=== PATIENT | female | born 1990 ===

== ENCOUNTER 2018-09-25 17:05 | Emergency (ER) | payer SELFPAY ==
[2018-09-25 18:39] LABS: Basophils # (Auto) 0.1 K/mm3 (0.0-0.1); Basophils % (Auto) 0.7 % (0.0-1.8); Eosinophils # (Auto) 0.1 K/mm3 (0.0-0.4); Eosinophils % (Auto) 0.6 % (0.0-4.3); Hematocrit 45.5 % (30.3-42.9); Hemoglobin 15.6 gm/dl (10.1-14.3); Lymphocytes # (Auto) 0.8 K/mm3 (1.2-5.4); Lymphocytes % (Auto) 9.6 % (13.4-35.0); Mean Corpuscular HGB Conc 34 % (30-34); Mean Corpuscular Volume 91 fl (79-97); Monocytes # (Auto) 0.6 K/mm3 (0.0-0.8); Monocytes % (Auto) 6.9 % (0.0-7.3); Platelet Count 318 K/mm3 (140-440); Red Cell Distribution Width 13.7 % (13.2-15.2)
[2018-09-25 18:59] LABS: Alanine Aminotransferase 15 units/L (7-56); Albumin 4.3 g/dL (3.9-5); BUN/Creatinine Ratio 15; Blood Urea Nitrogen 12 mg/dL (7-17); Calcium 9.5 mg/dL (8.4-10.2); Hemolysis Index 23
[2018-09-25] MEDS ORDERED: TORADOL IV ONE (19:53)
[2018-09-25] MEDS ORDERED: TYLENOL PO ONE (19:53)
[2018-09-25] MEDS ORDERED: NACL 0.9% 1000 ML 1,000 ML IV ONE (19:53)
[2018-09-25] MEDS ORDERED: ZOFRAN IV ONE (19:53)
--- NOTE | 2018-09-25 21:26 | XRay Report ---
PROCEDURE: XR CHEST ROUTINE 2V TECHNIQUE: PA and lateral chest radiographs were obtained. HISTORY: cough COMPARISONS: None. FINDINGS: Heart: Normal. Mediastinum/Vessels: Normal. Lungs/Pleural space: Normal. Bony thorax: No acute osseous abnormality. IMPRESSION: Normal examination. This document is electronically signed by Chong Wilkes MD., Sep 25 2018 09:24:53 PM ET
[2018-09-25 21:44] LABS: Bilirubin,Urine NEG (Negative); Blood,Urine SM (Negative); Color,Urine Yellow (Yellow); Mucus,Urine FEW /HPF; Protein,Urine <15 mg/dL mg/dL (Negative); Urobilinogen,Urine < 2.0 mg/dL (<2.0)
[2018-09-25] MEDS ORDERED: ROCEPHIN/NS 1 GM/50 ML 1 GM/50 ML BAG IV ONE (21:49)
[2018-09-25 23:32] VITALS: BP 137/74
--- NOTE | 2018-09-25 23:51 | Emergency Department Report ---
- General Chief Complaint: Nausea/Vomiting/Diarrhea Stated Complaint: VOMIT/FLU LIKE SYM Time Seen by Provider: 09/25/18 19:45 Source: patient Mode of arrival: Ambulatory Limitations: No Limitations - History of Present Illness Initial Comments: Patient is a 28-year-old white female with no past medical history presents to the ED with complaint of acute onset persistent severe diffuse body aches and pains, nasal and sinus congestion, dry cough and sore throat, nausea and vomiti ng for the last 2 days. Patient states that she's been unable to walk or perform any physical activity because of severe diffuse body aches and pains. Patient also complains of subjective fever and chills for the last 24 hours. Patient denies dizziness, abdominal pain, dysuria, urinary frequency and urgency, shortness of breath, chest pain, diarrhea, neck pain, change in urination, or vaginal bleeding and vaginal discharge. MD Complaint: fever, cough, sore throat, rhinorrhea, nasal congestion, sinus pain, other (Nausea, vomiting, diffuse body aches and pain) -: Sudden, days(s) (2) Severity: severe Severity scale (0 -10): 8 Quality: sharp, aching Consistency: constant Improves With: nothing Worsens With: nothing Context: sick contacts Associated Symptoms: fever, chills, myalgias, headache, rhinorrhea, nasal congestion, sore throat, cough, nausea, vomiting. denies: diaphoresis, stiff neck, chest pain, shortness of breath, abdominal pain, diarrhea, dysuria, rash, confusion, right sweats, weight loss, epistaxis, hoarseness, ear pain, other Treatments Prior to Arrival: Acetaminophen - Related Data Previous Rx's Medication Instructions Recorded Last Taken Type Ibuprofen [Motrin] 600 mg PO Q8H PRN #20 tablet 09/25/18 Unknown Rx Ondansetron [Zofran Odt] 4 mg PO Q6HR PRN #15 tab.rapdis 09/25/18 Unknown Rx Amoxicillin/Potassium Clav 1 each PO Q12H #20 tablet 09/26/18 Unknown Rx [Augmentin 875-125 Tablet] Benzonatate [Tessalon Perles] 100 mg PO Q8HR #24 capsule 09/26/18 Unknown Rx methylPREDNISolone [Medrol] 4 mg PO DAILY #21 tab.ds.pk 09/26/18 Unknown Rx Allergies Allergy/AdvReac Type Severity Reaction Status Date / Time No Known Allergies Allergy Verified 09/25/18 17:09 ED Review of Systems ROS: Stated complaint: VOMIT/FLU LIKE SYM Other details as noted in HPI Comment: All other systems reviewed and negative Constitutional: no symptoms reported, see HPI, chills, fever, malaise, weakness. denies: diaphoresis Eyes: as per HPI. denies: eye pain, eye discharge, vision change ENT: as per HPI, congestion. denies: ear pain, throat pain, dental pain, heari ng loss, epistaxis Respiratory: no symptoms reported, see HPI, cough. denies: shortness of breath, SOB with exertion, SOB at rest Cardiovascular: as per HPI. denies: chest pain, palpitations, dyspnea on exertion, edema, paroxysmal nocturnal dyspnea Endocrine: no symptoms reported, see HPI. denies: intolerance to cold, in creased thirst, increased urine, unexplained weight gain Gastrointestinal: as per HPI, nausea, vomiting. denies: abdominal pain, diarrhea, constipation, hematemesis Genitourinary: as per HPI. denies: urgency, dysuria, frequency, hematuria, abnormal menses, dyspareunia Musculoskeletal: as per HPI, back pain, arthralgia, myalgia Skin: as per HPI. denies: rash, lesions, change in color, change in hair/nails Neurological: as per HPI, headache. denies: weakness, numbness, paresthesias, confusion, abnormal gait, vertigo Psychiatric: as per HPI, anxiety. denies: auditory hallucinations, visual hallucinations, suicidal thoughts Hematological/Lymphatic: as per HPI ED Past Medical Hx - Past Medical History Previous Medical History?: No - Surgical History Past Surgical History?: No - Social History Smoking Status: Never Smoker Substance Use Type: None - Medications Home Medications: Home Medications Medication Instructions Recorded Confirmed Last Taken Type Ibuprofen [Motrin] 600 mg PO Q8H PRN #20 tablet 09/25/18 Unknown Rx Ondansetron [Zofran Odt] 4 mg PO Q6HR PRN #15 tab.rapdis 09/25/18 Unknown Rx Amoxicillin/Potassium Clav 1 each PO Q12H #20 tablet 09/26/18 Unknown Rx [Augmentin 875-125 Tablet] Benzonatate [Tessalon Perles] 100 mg PO Q8HR #24 capsule 09/26/18 Unknown Rx methylPREDNISolone [Medrol] 4 mg PO DAILY #21 tab.ds.pk 09/26/18 Unknown Rx ED Physical Exam - General Limitations: No Limitations General appearance: alert, in no apparent distress - Head Head exam: Present: atraumatic, normocephalic, normal inspection - Eye Eye exam: Present: normal appearance, PERRL, EOMI. Absent: scleral icterus, conjunctival injection, periorbital swelling, periorbital tenderness Pupils: Present: normal accommodation - ENT ENT exam: Present: normal exam, normal orophraynx, mucous membranes moist, TM's normal bilaterally, normal external ear exam, other (Grossly congested nasal passages; palpabe tenderness on frontal sinuses) - Neck Neck exam: Present: normal inspection, full ROM. Absent: tenderness, meningismus, lymphadenopathy - Respiratory Respiratory exam: Present: normal lung sounds bilaterally. Absent: respiratory distress, wheezes, rales, rhonchi, chest wall tenderness, accessory muscle use, decreased breath sounds - Cardiovascular Cardiovascular Exam: Present: regular rate, normal rhythm, normal heart sounds. Absent: bradycardia, tachycardia, systolic murmur, diastolic murmur - GI/Abdominal GI/Abdominal exam: Present: soft, normal bowel sounds. Absent: distended, tenderness, rebound, hyperactive bowel sounds, hypoactive bowel sounds, organomegaly, bruit, pulsatile mass - Rectal Rectal exam: Present: deferred - Extremities Exam Extremities exam: Present: normal inspection, full ROM, normal capillary refill - Back Exam Back exam: Present: normal inspection. Absent: full ROM, tenderness, CVA tenderness (R), CVA tenderness (L), muscle spasm, paraspinal tenderness, vertebral tenderness - Neurological Exam Neurological exam: Present: alert, oriented X3, CN II-XII intact, normal gait, reflexes normal - Psychiatric Psychiatric exam: Present: normal affect - Skin Skin exam: Present: warm, dry, intact, normal color ED Course Vital Signs 09/25/18 09/25/18 17:45 23:08 Temperature 98.2 F 98.1 F Pulse Rate 84 64 Respiratory 20 18 Rate Blood Pressure 131/88 Blood Pressure 137/74 [Left] O2 Sat by Pulse 99 100 Oximetry - Reevaluation(s) Reevaluation #1: 09/25/18 23:53 Patient is alert and oriented 3 and is not in any distress with normal vital signs. Labs are drawn and chest x-ray also ordered. Urinalysis shows acute urinary tract infection. Rapid influenza and rapid strep test and negative. Chest x-ray shows no acute cardiopulmonary abnormalities. Other lab test results are unremarkable. Patient was treated for pain and nausea in the ED, and also given normal saline 1 L IV bolus, and also treated with Rocephin 1 g IV for acute UTI. On reevaluation, patient resting comfortably in the room sleeping and in no distress. Patient's pain is well controlled as well as nause a and vomiting. Patient's symptoms are likely viral, complicated by frontal sinus infection as well as acute urinary tract infection. Patient was discharged home on pain medications, antiemetics and antibiotics, and advised to follow up with her primary care physician at [facility] in 5-7 days for reevaluation. Patient was advised to return to the ED immediately if symptoms get worse. ED Medical Decision Making - Lab Data Result diagrams: 09/25/18 18:13 09/25/18 18:13 - Radiology Data Radiology results: report reviewed, image reviewed Chest x-ray shows normal cardiopulmonary process - Medical Decision Making Patient is alert and oriented 3 and is not in any distress with normal vital signs. Labs are drawn and chest x-ray also ordered. Urinalysis shows acute urinary tract infection. Rapid influenza and rapid strep test and negative. Chest x-ray shows no acute cardiopulmonary abnormalities. Other lab test results are unremarkable. Patient was treated for pain and nausea in the ED, and also given normal saline 1 L IV bolus, and also treated with Rocephin 1 g IV for acute UTI. On reevaluation, patient resting comfortably in the room sleeping and in no distress. Patient's pain is well controlled as well as nausea and vomiting. Patient's symptoms are likely viral, complicated by frontal sinus infection as well as acute urinary tract infection. Patient was discharged home on pain medications, antiemetics and antibiotics, and advised to follow up with her primary care physician at [facility] in 5-7 days for reevaluation. Patient was advised to return to the ED immediately if symptoms get worse. - Differential Diagnosis Flu like, Bronchitis, sinusitis, Acute UTI, Pneumonia, Strep throat Critical care attestation.: If time is entered above; I have spent that time in minutes in the direct care of this critically ill patient, excluding procedure time. ED Disposition Clinical Impression: Flu-like symptoms, Acute urinary tract infection, Nausea and vomiting in adult Acute frontal sinusitis Qualifiers: Recurrence: non-recurrent Qualified Code(s): J01.10 - Acute frontal sinusitis, unspecified Disposition: TO HOME OR SELFCARE Is pt being admited?: No Does the pt Need Aspirin: No Condition: Stable Instructions: Acute Nausea and Vomiting (ED), Sinusitis (ED), Urinary Tract Infection in Women (ED), Upper Respiratory Infection (ED) Additional Instructions: Take medications with food, drink plenty of fluids and follow-up with the primary care physician in 5-7 days for reevaluation. Return to the ED immediately if symptoms get worse. Prescriptions: Amoxicillin/Potassium Clav [Augmentin 875-125 Tablet] 1 each PO Q12H #20 tablet methylPREDNISolone [Medrol] 4 mg PO DAILY #21 tab.ds.pk Ibuprofen [Motrin] 600 mg PO Q8H PRN #20 tablet PRN Reason: Pain Benzonatate [Tessalon Perles] 100 mg PO Q8HR #24 capsule Ondansetron [Zofran Odt] 4 mg PO Q6HR PRN #15 tab.rapdis PRN Reason: Nausea Referrals: GUS ROGERS MD [Primary Care Provider] - 3-5 Days Forms: Work/School Release Form(ED) Time of Disposition: 00:02 Print Language: UPPER SORBIAN
== END 2018-09-26 00:41 | disposition home or self-care (01) ==
LOC: ED 17:05
DX: J01.10 Acute frontal sinusitis, unspecified (principal); N39.0 Urinary tract infection, site not specified; J11.1 Influenza due to unidentified influenza virus with other respiratory manifestations
CPT/HCPCS: 36415; 71046; 80053; 81001; 84703; 85025; 87116; 87400; 87430; 96361; 96365; 96375; 99284; J0696; J1885; J2405; J7030

== ENCOUNTER 2018-10-23 11:02 | Emergency (ER) | payer SELFPAY ==
[2018-10-23 11:13] VITALS: BP 126/79
[2018-10-23 12:37] LABS: Bilirubin,Urine NEG (Negative); Blood,Urine NEG (Negative); Color,Urine Yellow (Yellow); Mucus,Urine FEW /HPF; Protein,Urine <15 mg/dL mg/dL (Negative); Urobilinogen,Urine < 2.0 mg/dL (<2.0)
[2018-10-23 12:39] LABS: HCG Qualitative,Urine Negative (Negative)
--- NOTE | 2018-10-23 14:08 | Emergency Department Report ---
<MONICAZAC - Last Filed: 10/23/18 14:01> ED Abdominal Pain HPI - General Chief Complaint: Abdominal Pain Stated Complaint: ABD PAIN Time Seen by Provider: 10/23/18 12:55 Source: patient Mode of arrival: Ambulatory Limitations: No Limitations - History of Present Illness MD Complaint: abdominal pain Location: RUQ Radiation: LUQ, RUQ, epigastric Migration to: no migration Severity: mild, moderate Quality: aching, dull Consistency: constant Improves With: nothing Worsens With: eating Associated Symptoms: nausea, other (having green stool, green stool). denies: vomiting, diarrhea, fever, dysuria, hematemesis, hematochezia - Related Data Previous Rx's Medication Instructions Recorded Last Taken Type Ibuprofen [Motrin] 600 mg PO Q8H PRN #20 tablet 09/25/18 Unknown Rx Ondansetron [Zofran Odt] 4 mg PO Q6HR PRN #15 tab.rapdis 09/25/18 Unknown Rx Amoxicillin/Potassium Clav 1 each PO Q12H #20 tablet 09/26/18 Unknown Rx [Augmentin 875-125 Tablet] Benzonatate [Tessalon Perles] 100 mg PO Q8HR #24 capsule 09/26/18 Unknown Rx methylPREDNISolone [Medrol] 4 mg PO DAILY #21 tab.ds.pk 09/26/18 Unknown Rx Hyoscyamine Subl [Levsin Sl 0.125 0.125 mg SL Q4HR PRN #20 tablet 10/23/18 Unknown Rx TAB] Allergies Allergy/AdvReac Type Severity Reaction Status Date / Time No Known Allergies Allergy Verified 10/23/18 11:04 ED Review of Systems Constitutional: denies: chills, fever Eyes: denies: eye pain, eye discharge, vision change ENT: denies: ear pain, throat pain Respiratory: denies: cough, shortness of breath, wheezing Cardiovascular: denies: chest pain, palpitations Endocrine: no symptoms reported Gastrointestinal: denies: abdominal pain, nausea, diarrhea, constipation, hematemesis, melena, hematochezia Genitourinary: denies: urgency, dysuria, discharge Musculoskeletal: denies: back pain, joint swelling, arthralgia Skin: denies: rash, lesions Neurological: denies: headache, weakness, paresthesias Psychiatric: denies: anxiety, depression Hematological/Lymphatic: denies: easy bleeding, easy bruising ED Past Medical Hx - Past Medical History Previous Medical History?: No - Surgical History Past Surgical History?: No - Social History Smoking Status: Never Smoker Substance Use Type: None - Medications Home Medications: Home Medications Medication Instructions Recorded Confirmed Last Taken Type Ibuprofen [Motrin] 600 mg PO Q8H PRN #20 tablet 09/25/18 Unknown Rx Ondansetron [Zofran Odt] 4 mg PO Q6HR PRN #15 tab.rapdis 09/25/18 Unknown Rx Amoxicillin/Potassium Clav 1 each PO Q12H #20 tablet 09/26/18 Unknown Rx [Augmentin 875-125 Tablet] Benzonatate [Tessalon Perles] 100 mg PO Q8HR #24 capsule 09/26/18 Unknown Rx methylPREDNISolone [Medrol] 4 mg PO DAILY #21 tab.ds.pk 09/26/18 Unknown Rx Hyoscyamine Subl [Levsin Sl 0.125 0.125 mg SL Q4HR PRN #20 tablet 10/23/18 Unknown Rx TAB] ED Physical Exam - General Limitations: No Limitations General appearance: alert, in no apparent distress - Head Head exam: Present: atraumatic, normocephalic - Eye Eye exam: Present: normal appearance, PERRL, EOMI Pupils: Present: normal accommodation - ENT ENT exam: Present: normal exam, normal orophraynx, mucous membranes moist, TM's normal bilaterally - Neck Neck exam: Present: normal inspection, full ROM - Respiratory Respiratory exam: Present: normal lung sounds bilaterally. Absent: respiratory distress, wheezes, rales, rhonchi, chest wall tenderness, accessory muscle use, decreased breath sounds - Cardiovascular Cardiovascular Exam: Present: regular rate, normal rhythm. Absent: systolic murmur, diastolic murmur, rubs, gallop - GI/Abdominal GI/Abdominal exam: Present: soft, normal bowel sounds - Extremities Exam Extremities exam: Present: normal inspection - Back Exam Back exam: Present: normal inspection - Neurological Exam Neurological exam: Present: alert, oriented X3 - Psychiatric Psychiatric exam: Present: normal affect, normal mood - Skin Skin exam: Present: warm, dry, intact, normal color. Absent: rash ED Disposition Clinical Impression: Acute gastritis Disposition: - TO HOME OR SELFCARE Condition: Stable Instructions: Abdominal Pain (ED) Prescriptions: Hyoscyamine Subl [Levsin Sl 0.125 TAB] 0.125 mg SL Q4HR PRN #20 tablet PRN Reason: Spasms Referrals: [facility] [Provider Group] - 3-5 Days [place] GUS NICOLE MD [Primary Care Provider] - 3-5 Days Forms: Work/School Release Form(ED) <JOHNATHON BUENROSTRO - Last Filed: 11/08/18 09:23> ED Review of Systems ROS: Stated complaint: ABD PAIN Other details as noted in HPI ED Physical Exam - GI/Abdominal GI/Abdominal exam: Present: tenderness. Absent: distended, guarding, rebound ED Course Vital Signs 10/23/18 11:12 Temperature 98.4 F Pulse Rate 60 Respiratory 18 Rate Blood Pressure 126/79 O2 Sat by Pulse 100 Oximetry ED Medical Decision Making - Lab Data Result diagrams: 10/23/18 14:08 10/23/18 14:08 Lab Results 10/23/18 10/23/18 10/23/18 Range/Units 12:12 14:08 14:08 WBC 7.6 (4.5-11.0) K/mm3 RBC 4.56 (3.65-5.03) M/mm3 Hgb 14.1 (10.1-14.3) gm/dl Hct 41.6 (30.3-42.9) % MCV 91 (79-97) fl MCH 31 (28-32) pg MCHC 34 (30-34) % RDW 13.9 (13.2-15.2) % Plt Count 251 (140-440) K/mm3 Lymph % (Auto) 28.4 (13.4-35.0) % [place] % (Auto) 7.0 (0.0-7.3) % Eos % (Auto) 2.4 (0.0-4.3) % Baso % (Auto) 0.6 (0.0-1.8) % Lymph # 2.2 (1.2-5.4) K/mm3 [place] # 0.5 (0.0-0.8) K/mm3 Eos # 0.2 (0.0-0.4) K/mm3 Baso # 0.0 (0.0-0.1) K/mm3 Seg Neutrophils % 61.6 (40.0-70.0) % Seg Neutrophils # 4.7 (1.8-7.7) K/mm3 Sodium (137-145) mmol/L Potassium (3.6-5.0) mmol/L Chloride (98-107) mmol/L Carbon Dioxide (22-30) mmol/L Anion Gap mmol/L BUN (7-17) mg/dL Creatinine (0.7-1.2) mg/dL Estimated GFR ml/min BUN/Creatinine Ratio % Glucose (65-100) mg/dL Calcium (8.4-10.2) mg/dL Total Bilirubin (0.1-1.2) mg/dL Direct Bilirubin (0-0.2) mg/dL AST (5-40) units/L ALT (7-56) units/L Alkaline Phosphatase (35-129) units/L Total Protein (6.3-8.2) g/dL Albumin (3.9-5) g/dL Albumin/Globulin Ratio % Lipase 23 (13-60) units/L Urine Color Yellow (Yellow) Urine Turbidity Slightly-cloudy (Clear) Urine pH 6.0 (5.0-7.0) Ur Specific [place] 1.018 (1.003-1.030) Urine Protein <15 mg/dl (Negative) mg/dL Urine Glucose (UA) Neg (Negative) mg/dL Urine Ketones Neg (Negative) mg/dL Urine Blood Neg (Negative) Urine Nitrite Neg (Negative) Urine Bilirubin Neg (Negative) Urine Urobilinogen < 2.0 (<2.0) mg/dL Ur Leukocyte Esterase Tr (Negative) Urine WBC (Auto) 6.0 (0.0-6.0) /HPF Urine RBC (Auto) 2.0 (0.0-6.0) /HPF U Epithel Cells (Auto) 2.0 (0-13.0) /HPF Urine Mucus Few /HPF Urine HCG, Qual Negative (Negative) 10/23/18 Range/Units 14:08 WBC (4.5-11.0) K/mm3 RBC (3.65-5.03) M/mm3 Hgb (10.1-14.3) gm/dl Hct (30.3-42.9) % MCV (79-97) fl MCH (28-32) pg MCHC (30-34) % RDW (13.2-15.2) % Plt Count (140-440) K/mm3 Lymph % (Auto) (13.4-35.0) % [place] % (Auto) (0.0-7.3) % Eos % (Auto) (0.0-4.3) % Baso % (Auto) (0.0-1.8) % Lymph # (1.2-5.4) K/mm3 [place] # (0.0-0.8) K/mm3 Eos # (0.0-0.4) K/mm3 Baso # (0.0-0.1) K/mm3 Seg Neutrophils % (40.0-70.0) % Seg Neutrophils # (1.8-7.7) K/mm3 Sodium 135 L (137-145) mmol/L Potassium 4.1 (3.6-5.0) mmol/L Chloride 100.2 (98-107) mmol/L Carbon Dioxide 25 (22-30) mmol/L Anion Gap 14 mmol/L BUN 6 L (7-17) mg/dL Creatinine 0.7 (0.7-1.2) mg/dL Estimated GFR > 60 ml/min BUN/Creatinine Ratio 9 % Glucose 85 (65-100) mg/dL Calcium 9.0 (8.4-10.2) mg/dL Total Bilirubin 0.20 (0.1-1.2) mg/dL Direct Bilirubin < 0.2 (0-0.2) mg/dL AST 16 (5-40) units/L ALT 12 (7-56) units/L Alkaline Phosphatase 48 (35-129) units/L Total Protein 7.8 (6.3-8.2) g/dL Albumin 4.0 (3.9-5) g/dL Albumin/Globulin Ratio 1.1 % Lipase (13-60) units/L Urine Color (Yellow) Urine Turbidity (Clear) Urine pH (5.0-7.0) Ur Specific [place] (1.003-1.030) Urine Protein (Negative) mg/dL Urine Glucose (UA) (Negative) mg/dL Urine Ketones (Negative) mg/dL Urine Blood (Negative) Urine Nitrite (Negative) Urine Bilirubin (Negative) Urine Urobilinogen (<2.0) mg/dL Ur Leukocyte Esterase (Negative) Urine WBC (Auto) (0.0-6.0) /HPF Urine RBC (Auto) (0.0-6.0) /HPF U Epithel Cells (Auto) (0-13.0) /HPF Urine Mucus /HPF Urine HCG, Qual (Negative) - Radiology Data [facility] [address] [place] [address] Ultrasound Report Signed Patient: NEMO ELAM MR#: [id number] : 1990 Acct:[id number] Age/Sex: 28 / F ADM Date: 10/23/18 Loc: ED Attending Dr: Ordering Physician: EITAN BASHIR Date of Service: 10/23/18 Procedure(s): US abdomen limited Accession Number(s): [id number] cc: EITAN BASHIR PROCEDURE: US ABDOMEN LIMITED TECHNIQUE: Real-time sonography was performed of the right upper quadrant with image documentation. HISTORY: ruq pain COMPARISONS: None . FINDINGS: Exam of the right upper quadrant shows normal echogenicity of the liver. No masses are seen. The intrahepatic ducts are not distended. There is no ascites. Gallbladder appears normal. Common bile duct normal caliber measuring 2 mm. Right kidney is suboptimally visualized. No gross abnormalities seen. The kidney only measures 8.6 cm. I cannot exclude mild atrophy. Pancreas is well visualized. Portions are obscured by bowel gas. The portion seen and showed no abnormalities. IMPRESSION: No acute or focal abnormalities are seen. Visualization of the pancreas is limited. No gross abnormalities seen. Right kidney only measures 8.6 cm greatest length. This may be imaging artifact. I cannot exclude mild atrophy or a congenitally small kidney. . This document is electronically signed by Ulises Cameron MD., October 23 2018 02:29:01 PM ET Transcribed By: DFN Dictated By: ULISES CAMERON MD Electronically Authenticated By: ULISES CAMERON MD Signed Date/Time: 10/23/18 1431 DD/ 1415 TD/TT: 10/23/18 1416 - Medical Decision Making Patient presenting with epigastric discomfort. Ultrasound was essentially normal and does not show any evidence of cholelithiasis. Patient's pancreas enzymes are within normal limits. Patient referred to GI for further management of acute gastritis versus GERD. Critical care attestation.: If time is entered above; I have spent that time in minutes in the direct care of this critically ill patient, excluding procedure time. ED Disposition Is pt being admited?: No
--- NOTE | 2018-10-23 14:31 | Ultrasound Report ---
PROCEDURE: US ABDOMEN LIMITED TECHNIQUE: Real-time sonography was performed of the right upper quadrant with image documentation. HISTORY: ruq pain COMPARISONS: None . FINDINGS: Exam of the right upper quadrant shows normal echogenicity of the liver. No masses are seen. The intr ahepatic ducts are not distended. There is no ascites. Gallbladder appears normal. Common bile duct n ormal caliber measuring 2 mm. Right kidney is suboptimally visualized. No gross abnormalities seen. T he kidney only measures 8.6 cm. I cannot exclude mild atrophy. Pancreas is well visualized. Portions are obscured by bowel gas. The portion seen and showed no abnormalities. IMPRESSION: No acute or focal abnormalities are seen. Visualization of the pancreas is limited. No gross abnormalities seen. Right kidney only measures 8.6 cm greatest length. This may be imaging artifact. I cannot exclude mil d atrophy or a congenitally small kidney. . This document is electronically signed by Ulises Skinner MD., October 23 2018 02:29:01 PM ET
[2018-10-23 14:43] LABS: Basophils % (Auto) 0.6 % (0.0-1.8); Eosinophils # (Auto) 0.2 K/mm3 (0.0-0.4); Eosinophils % (Auto) 2.4 % (0.0-4.3); Hematocrit 41.6 % (30.3-42.9); Hemoglobin 14.1 gm/dl (10.1-14.3); Lymphocytes # (Auto) 2.2 K/mm3 (1.2-5.4); Lymphocytes % (Auto) 28.4 % (13.4-35.0); Mean Corpuscular HGB Conc 34 % (30-34); Mean Corpuscular Volume 91 fl (79-97); Monocytes # (Auto) 0.5 K/mm3 (0.0-0.8); Platelet Count 251 K/mm3 (140-440); Red Blood Count 4.56 M/mm3 (3.65-5.03); Red Cell Distribution Width 13.9 % (13.2-15.2)
[2018-10-23 14:47] LABS: Alanine Aminotransferase 12 units/L (7-56); BUN/Creatinine Ratio 9; Bilirubin,Direct < 0.2 mg/dL (0-0.2); Blood Urea Nitrogen 6 mg/dL (7-17); Hemolysis Index 5
== END 2018-10-23 16:10 | disposition home or self-care (01) ==
LOC: ED 11:02
DX: R10.13 Epigastric pain (principal); R11.0 Nausea
CPT/HCPCS: 36415; 76705; 80048; 80076; 81001; 81025; 83690; 85025

== ENCOUNTER 2018-11-21 16:23 | Emergency (ER) | payer SELFPAY ==
--- NOTE | 2018-11-21 16:47 | Emergency Department Report ---
Blank Doc - Documentation Documentation: This is a 28-year-old female that presents with lower back pain after heavy li fting at work. Denies any injuries. This initial assessment/diagnostic orders/clinical plan/treatment(s) is/are subject to change based on patient's health status, clinical progression and re-assessment by fellow clinical providers in the ED. Further treatment and workup at subsequent clinical providers discretion. Patient/guardians urged not to elope from the ED as their condition may be serious if not clinically assessed and managed. Initial orders include: 1- Patient sent to [facility] for further evaluation and treatment
[2018-11-21 16:48] VITALS: BP 132/78
== END 2018-11-21 19:32 | disposition home or self-care (01) ==
LOC: ED 16:23
DX: M54.5 Low back pain (principal); Z53.21 Procedure and treatment not carried out due to patient leaving prior to being seen by health care provider
CPT/HCPCS: 99282

== ENCOUNTER 2019-01-30 15:56 | Emergency (ER) | payer SELFPAY ==
--- NOTE | 2019-01-30 16:15 | Emergency Department Report ---
Blank Doc - Documentation Documentation: 28-year-old female that presents with abscess to buttock area. This initial assessment/diagnostic orders/clinical plan/treatment(s) is/are subject to change based on patient's health status, clinical progression and re- assessment by fellow clinical providers in the ED. Further treatment and workup at subsequent clinical providers discretion. Patient/guardians urged not to elope from the ED as their condition may be serious if not clinically assessed and managed. Initial orders include: 1- Patient sent to [facility] for further evaluation and treatment
[2019-01-30 16:16] VITALS: BP 105/74
--- NOTE | 2019-01-30 18:07 | Emergency Department Report ---
- General Chief complaint: Skin/Abscess/Foreign Body Stated complaint: ABSCESS ON TAILBONE Time Seen by Provider: 01/30/19 16:14 Source: patient Mode of arrival: Ambulatory Limitations: No Limitations - History of Present Illness Initial comments: Patient is a 28-year-old female who presents to emergency room with complaints of an abscess to the tailbone that began 5 days ago. she denies any fever, drainage, nausea, vomiting, diarrhea, any other symptoms. 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 she has not seen a general surgeon due to "fears of having surgery." she states she last had an I&D performed from another emergency room approximately 2 years ago. She states that she usually uses warm compresses and it opens up on its own. States that she does not want an I&D performed today and she just "wants antibiotics and a work note." she denies any past medical history, allergies to medications, history of diabetes. - Related Data Previous Rx's Medication Instructions Recorded Last Taken Type Ibuprofen [Motrin] 600 mg PO Q8H PRN #20 tablet 09/25/18 Unknown Rx Ondansetron [Zofran Odt] 4 mg PO Q6HR PRN #15 tab.rapdis 09/25/18 Unknown Rx Amoxicillin/Potassium Clav 1 each PO Q12H #20 tablet 09/26/18 Unknown Rx [Augmentin 875-125 Tablet] Benzonatate [Tessalon Perles] 100 mg PO Q8HR #24 capsule 09/26/18 Unknown Rx methylPREDNISolone [Medrol] 4 mg PO DAILY #21 tab.ds.pk 09/26/18 Unknown Rx Hyoscyamine Subl [Levsin Sl 0.125 0.125 mg SL Q4HR PRN #20 tablet 10/23/18 Unknown Rx TAB] Ketorolac [Toradol] 10 mg PO Q6H PRN #14 tablet 11/21/18 Unknown Rx methOCARBAMOL [Robaxin TAB] 750 mg PO Q8H PRN #20 tablet 11/21/18 Unknown Rx Clindamycin [Clindamycin CAP] 450 mg PO TID 7 Days #63 capsule 01/30/19 Unknown Rx Allergies Allergy/AdvReac Type Severity Reaction Status Date / Time No Known Allergies Allergy Verified 01/30/19 15:58 Abscess Boil HPI - HPI Chief Complaint: Skin/Abscess/Foreign Body Stated Complaint: ABSCESS ON TAILBONE Time Seen by Provider: 01/30/19 16:14 Home Medications: Previous Rx's Medication Instructions Recorded Last Taken Type Ibuprofen [Motrin] 600 mg PO Q8H PRN #20 tablet 09/25/18 Unknown Rx Ondansetron [Zofran Odt] 4 mg PO Q6HR PRN #15 tab.rapdis 09/25/18 Unknown Rx Amoxicillin/Potassium Clav 1 each PO Q12H #20 tablet 09/26/18 Unknown Rx [Augmentin 875-125 Tablet] Benzonatate [Tessalon Perles] 100 mg PO Q8HR #24 capsule 09/26/18 Unknown Rx methylPREDNISolone [Medrol] 4 mg PO DAILY #21 tab.ds.pk 09/26/18 Unknown Rx Hyoscyamine Subl [Levsin Sl 0.125 0.125 mg SL Q4HR PRN #20 tablet 10/23/18 Unknown Rx TAB] Ketorolac [Toradol] 10 mg PO Q6H PRN #14 tablet 11/21/18 Unknown Rx methOCARBAMOL [Robaxin TAB] 750 mg PO Q8H PRN #20 tablet 11/21/18 Unknown Rx Clindamycin [Clindamycin CAP] 450 mg PO TID 7 Days #63 capsule 01/30/19 Unknown Rx Allergies/Adverse Reactions: Allergies Allergy/AdvReac Type Severity Reaction Status Date / Time No Known Allergies Allergy Verified 01/30/19 15:58 ED Review of Systems ROS: Stated complaint: ABSCESS ON TAILBONE Other details as noted in HPI Comment: All other systems reviewed and negative ED Past Medical Hx - Past Medical History Previous Medical History?: No - Surgical History Past Surgical History?: No - Social History Smoking Status: Never Smoker Substance Use Type: None - Medications Home Medications: Home Medications Medication Instructions Recorded Confirmed Last Taken Type Ibuprofen [Motrin] 600 mg PO Q8H PRN #20 tablet 09/25/18 Unknown Rx Ondansetron [Zofran Odt] 4 mg PO Q6HR PRN #15 tab.rapdis 09/25/18 Unknown Rx Amoxicillin/Potassium Clav 1 each PO Q12H #20 tablet 09/26/18 Unknown Rx [Augmentin 875-125 Tablet] Benzonatate [Tessalon Perles] 100 mg PO Q8HR #24 capsule 09/26/18 Unknown Rx methylPREDNISolone [Medrol] 4 mg PO DAILY #21 tab.ds.pk 09/26/18 Unknown Rx Hyoscyamine Subl [Levsin Sl 0.125 0.125 mg SL Q4HR PRN #20 tablet 10/23/18 Unknown Rx TAB] Ketorolac [Toradol] 10 mg PO Q6H PRN #14 tablet 11/21/18 Unknown Rx methOCARBAMOL [Robaxin TAB] 750 mg PO Q8H PRN #20 tablet 11/21/18 Unknown Rx Clindamycin [Clindamycin CAP] 450 mg PO TID 7 Days #63 capsule 01/30/19 Unknown Rx ED Physical Exam - General Limitations: No Limitations General appearance: alert, in no apparent distress - Head Head exam: Present: atraumatic, normocephalic - Eye Eye exam: Present: normal appearance - ENT ENT exam: Present: mucous membranes moist - Neurological Exam Neurological exam: Present: alert, oriented X3 - Psychiatric Psychiatric exam: Present: normal affect, normal mood - Skin Skin exam: Present: warm, dry, other (5 cm area of induration and fluctuance to the tip of the gluteual cleft, small amount of surrounding erythema, communication analyst: NIKA mccain ) ED Course Vital Signs 01/30/19 16:14 Temperature 97.8 F Pulse Rate 97 H Respiratory 18 Rate Blood Pressure 105/74 O2 Sat by Pulse 100 Oximetry ED Medical Decision Making - Medical Decision Making Patient is a 28-year-old female who presents to emergency room with complaints of an abscess to the tailbone that began 5 days ago. she denies any fever, drainage, nausea, vomiting, diarrhea, any other symptoms. 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 she has not seen a general surgeon due to "fears of having surgery." she states she last had an I&D performed from another emergency room approximately 2 years ago. She states that she usually uses warm compresses and it opens up on its own. States that she does not want an I&D performed today and she just "wants antibiotics and a work note." she denies any past medical history, allergies to medications, history of diabetes. VSS. on exam: 5 cm area of induration and fluctuance to the tip of the gluteual cleft, small amount of surrounding erythema. discussed with pt based on her physical examination findings pt needs an I&D for a moderate sized abscess. pt states she wants abx and referral to general surgery. discussed with risks associated with not having an I&D including worsening infection leading to sepsis, , permanent disability. pt verbalized understanding and will sign out AGAINST MEDICAL ADVICE. pt signed AMA form. pt given prescription for clindamycin. advised to follow up with general surgery as soon as possible. continue using warm compresses. may take tylenol or ibuprofen for discomfort. return to the emergency room immediately for any new or worsening symptoms. AMA discharge: As we discussed, you have left the hospital/emergency room AGAINST MEDICAL ADVICE. By leaving, uterus , disability, paralysis, permanent loss of quality of life. The ER is open 24 hours a day, 7 days a week. Please return to the emergency room right away if and when you change her mind. If you decide not to return to the emergency room, please follow up with the listed physician referrals as soon as possible. - Differential Diagnosis abscess, cellulitis, pilonidal cyst Critical care attestation.: If time is entered above; I have spent that time in minutes in the direct care of this critically ill patient, excluding procedure time. ED Disposition Clinical Impression: Pilonidal cyst with abscess Disposition: LEFT AGAINST MED ADVICE Is pt being admited?: No Does the pt Need Aspirin: No Condition: Stable Instructions: Abscess (ED) Additional Instructions: risks associated with not having an I&D including worsening infection leading to sepsis, , permanent disability. you have signed out today against medical advise. please take medication as prescribed. Follow up with general surgery as soon as possible. continue using warm compresses. may take tylenol or ibuprofen for discomfort. return to the emergency room immediately for any new or worsening symptoms. Prescriptions: Clindamycin [Clindamycin CAP] 450 mg PO TID 7 Days #63 capsule Referrals: LOGAN JOSEPH MD [Staff Physician] - JUNAID BERRY MD [Staff Physician] - TROY Forms: AMA Form, Work/School Release Form(ED) Time of Disposition: 18:50 Print Language: WELSH
== END 2019-01-30 19:01 | disposition left against medical advice (07) ==
LOC: ED 15:56
DX: L05.01 Pilonidal cyst with abscess (principal)

== ENCOUNTER 2019-05-19 12:10 | Emergency (ER) | payer SELFPAY ==
--- NOTE | 2019-05-19 12:21 | Event Note ---
ED Screening Note Date of service: 05/19/19 Time: 12:20 ED Screening Note: Pt complains of hair loss and weight loss x 1.5 weeks denies hx of thyroid disease also complains of abscess on back This initial assessment/diagnostic orders/clinical plan/treatment(s) is/are subject to change based on patients health status, clinical progression and re- assessment by fellow clinical providers in the ED. Further treatment and workup at subsequent clinical providers discretion. Patient/guardian urged not to elope from the ED as their condition may be serious if not clinically assessed and managed. Initial orders include: labs
[2019-05-19 13:20] LABS: Basophils % (Auto) 0.4 % (0.0-1.8); Eosinophils # (Auto) 0.1 K/mm3 (0.0-0.4); Eosinophils % (Auto) 1.1 % (0.0-4.3); Hematocrit 46.8 % (30.3-42.9); Hemoglobin 15.6 gm/dl (10.1-14.3); Lymphocytes % (Auto) 9.2 % (13.4-35.0); Mean Corpuscular HGB Conc 33 % (30-34); Mean Corpuscular Volume 92 fl (79-97); Monocytes # (Auto) 0.4 K/mm3 (0.0-0.8); Monocytes % (Auto) 4.1 % (0.0-7.3); Platelet Count 285 K/mm3 (140-440); Red Cell Distribution Width 13.1 % (13.2-15.2)
[2019-05-19 14:06] LABS: Alanine Aminotransferase 30 units/L (7-56); Albumin 4.7 g/dL (3.9-5); BUN/Creatinine Ratio 9; Blood Urea Nitrogen 6 mg/dL (7-17); Calcium 9.7 mg/dL (8.4-10.2); Hemolysis Index 15
--- NOTE | 2019-05-19 17:29 | Emergency Department Report ---
- General Chief complaint: Skin/Abscess/Foreign Body Stated complaint: POSS ABCESS BACK Time Seen by Provider: 05/19/19 16:35 Source: patient Mode of arrival: Ambulatory Limitations: No Limitations - History of Present Illness Initial comments: Patient is a 29-year-old female presents emergency room with complaints of noticing a small amount of hair falling out and losing eyebrow hair and eyelashes that began 2 weeks ago. Patient states that she was concerned she was having thyroid issues but has no history of thyroid issues. She states that she also has an abscess of the tailbone that began a week ago. She states that she has chronically had this abscess present since she was 13 years old. She denies any fever, drainage, chills, any other symptoms. She states that she last had this approximately 4 months ago and it opened and drained on its own. She states that she has not had an I&D in several years due to it happening so frequently she no longer allows anyone to perform an I&D. She denies any other past medical history or allergies medications. she states that she did not follow-up with a general surgeon she was referred to last time. - Related Data Previous Rx's Medication Instructions Recorded Last Taken Type Ibuprofen [Motrin] 600 mg PO Q8H PRN #20 tablet 09/25/18 Unknown Rx Ondansetron [Zofran Odt] 4 mg PO Q6HR PRN #15 tab.rapdis 09/25/18 Unknown Rx Amoxicillin/Potassium Clav 1 each PO Q12H #20 tablet 09/26/18 Unknown Rx [Augmentin 875-125 Tablet] Benzonatate [Tessalon Perles] 100 mg PO Q8HR #24 capsule 09/26/18 Unknown Rx methylPREDNISolone [Medrol] 4 mg PO DAILY #21 tab.ds.pk 09/26/18 Unknown Rx Hyoscyamine Subl [Levsin Sl 0.125 0.125 mg SL Q4HR PRN #20 tablet 10/23/18 Un known Rx TAB] Ketorolac [Toradol] 10 mg PO Q6H PRN #14 tablet 11/21/18 Unknown Rx methOCARBAMOL [Robaxin TAB] 750 mg PO Q8H PRN #20 tablet 11/21/18 Unknown Rx Clindamycin [Clindamycin CAP] 450 mg PO TID 7 Days #63 capsule 01/30/19 Unknown Rx Doxycycline Hyclate [Doxycycline 100 mg PO BID 7 Days #14 tablet 05/19/19 Unknown Rx Hyclate TAB] Allergies Allergy/AdvReac Type Severity Reaction Status Date / Time No Known Allergies Allergy Verified 01/30/19 15:58 Abscess Boil HPI - HPI Chief Complaint: Skin/Abscess/Foreign Body Stated Complaint: POSS ABCESS BACK Time Seen by Provider: 05/19/19 16:35 Home Medications: Previous Rx's Medication Instructions Recorded Last Taken Type Ibuprofen [Motrin] 600 mg PO Q8H PRN #20 tablet 09/25/18 Unknown Rx Ondansetron [Zofran Odt] 4 mg PO Q6HR PRN #15 tab.rapdis 09/25/18 Unknown Rx Amoxicillin/Potassium Clav 1 each PO Q12H #20 tablet 09/26/18 Unknown Rx [Augmentin 875-125 Tablet] Benzonatate [Tessalon Perles] 100 mg PO Q8HR #24 capsule 09/26/18 Unknown Rx methylPREDNISolone [Medrol] 4 mg PO DAILY #21 tab.ds.pk 09/26/18 Unknown Rx Hyoscyamine Subl [Levsin Sl 0.125 0.125 mg SL Q4HR PRN #20 tablet 10/23/18 Unknown Rx TAB] Ketorolac [Toradol] 10 mg PO Q6H PRN #14 tablet 11/21/18 Unknown Rx methOCARBAMOL [Robaxin TAB] 750 mg PO Q8H PRN #20 tablet 11/21/18 Unknown Rx Clindamycin [Clindamycin CAP] 450 mg PO TID 7 Days #63 capsule 01/30/19 Unknown Rx Doxycycline Hyclate [Doxycycline 100 mg PO BID 7 Days #14 tablet 05/19/19 Unknown Rx Hyclate TAB] Allergies/Adverse Reactions: Allergies Allergy/AdvReac Type Severity Reaction Status Date / Time No Known Allergies Allergy Verified 01/30/19 15:58 ED Review of Systems ROS: Stated complaint: POSS ABCESS BACK Other details as noted in HPI Comment: All other systems reviewed and negative ED Past Medical Hx - Past Medical History Previous Medical History?: Yes Additional medical history: Pilonidal abscess - Surgical History Past Surgical History?: No - Social History Smoking Status: Never Smoker Substance Use Type: None - Medications Home Medications: Home Medications Medication Instructions Recorded Confirmed Last Taken Type Ibuprofen [Motrin] 600 mg PO Q8H PRN #20 tablet 09/25/18 Unknown Rx Ondansetron [Zofran Odt] 4 mg PO Q6HR PRN #15 tab.rapdis 09/25/18 Unknown Rx Amoxicillin/Potassium Clav 1 each PO Q12H #20 tablet 09/26/18 Unknown Rx [Augmentin 875-125 Tablet] Benzonatate [Tessalon Perles] 100 mg PO Q8HR #24 capsule 09/26/18 Unknown Rx methylPREDNISolone [Medrol] 4 mg PO DAILY #21 tab.ds.pk 09/26/18 Unknown Rx Hyoscyamine Subl [Levsin Sl 0.125 0.125 mg SL Q4HR PRN #20 tablet 10/23/18 Unknown Rx TAB] Ketorolac [Toradol] 10 mg PO Q6H PRN #14 tablet 11/21/18 Unknown Rx methOCARBAMOL [Robaxin TAB] 750 mg PO Q8H PRN #20 tablet 11/21/18 Unknown Rx Clindamycin [Clindamycin CAP] 450 mg PO TID 7 Days #63 capsule 01/30/19 Unknown Rx Doxycycline Hyclate [Doxycycline 100 mg PO BID 7 Days #14 tablet 05/19/19 Unknown Rx Hyclate TAB] ED Physical Exam - General Limitations: No Limitations General appearance: alert, in no apparent distress - Head Head exam: Present: atraumatic, normocephalic, other (pt has head full of hair, no obvious visualized bald areas ) - Eye Eye exam: Present: normal appearance - ENT ENT exam: Present: mucous membranes moist, other (pt has full eyebrow hair, pt has eyelashes present) - Neurological Exam Neurological exam: Present: alert, oriented X3 - Psychiatric Psychiatric exam: Present: normal affect, normal mood - Skin Skin exam: Present: warm, dry, other (2 cm area of induration and erythema to just superior to the gluteal cleft, no fluctuance, no opening, no necrosis, infant caregiver: NIKA cortez) ED Course Vital Signs 05/19/19 05/19/19 12:19 18:13 Temperature 98.4 F Pulse Rate 72 87 Respiratory 18 16 Rate Blood Pressure 121/77 Blood Pressure 131/90 [Right] O2 Sat by Pulse 100 100 Oximetry ED Medical Decision Making - Lab Data Result diagrams: 05/19/19 12:45 05/19/19 12:45 Lab Results 05/19/19 05/19/19 05/19/19 Range/Units 12:45 12:45 12:45 WBC 10.6 (4.5-11.0) K/mm3 RBC 5.10 H (3.65-5.03) M/mm3 Hgb 15.6 H (10.1-14.3) gm/dl Hct 46.8 H (30.3-42.9) % MCV 92 (79-97) fl MCH 31 (28-32) pg MCHC 33 (30-34) % RDW 13.1 L (13.2-15.2) % Plt Count 285 (140-440) K/mm3 Lymph % (Auto) 9.2 L (13.4-35.0) % [place] % (Auto) 4.1 (0.0-7.3) % Eos % (Auto) 1.1 (0.0-4.3) % Baso % (Auto) 0.4 (0.0-1.8) % Lymph # 1.0 L (1.2-5.4) K/mm3 [place] # 0.4 (0.0-0.8) K/mm3 Eos # 0.1 (0.0-0.4) K/mm3 Baso # 0.0 (0.0-0.1) K/mm3 Seg Neutrophils % 85.2 H (40.0-70.0) % Seg Neutrophils # 9.1 H (1.8-7.7) K/mm3 Sodium 138 (137-145) mmol/L Potassium 4.1 (3.6-5.0) mmol/L Chloride 102.1 (98-107) mmol/L Carbon Dioxide 22 (22-30) mmol/L Anion Gap 18 mmol/L BUN 6 L (7-17) mg/dL Creatinine 0.7 (0.7-1.2) mg/dL Estimated GFR > 60 ml/min BUN/Creatinine Ratio 9 % Glucose 98 (65-100) mg/dL Calcium 9.7 (8.4-10.2) mg/dL Total Bilirubin 0.50 (0.1-1.2) mg/dL AST 26 (5-40) units/L ALT 30 (7-56) units/L Alkaline Phosphatase 58 (35-129) units/L Total Protein 8.6 H (6.3-8.2) g/dL Albumin 4.7 (3.9-5) g/dL Albumin/Globulin Ratio 1.2 % TSH 1.070 (0.270-4.200) mlU/mL HCG, Quant (0-4) mIU/mL 05/19/19 Range/Units 12:45 WBC (4.5-11.0) K/mm3 RBC (3.65-5.03) M/mm3 Hgb (10.1-14.3) gm/dl Hct (30.3-42.9) % MCV (79-97) fl MCH (28-32) pg MCHC (30-34) % RDW (13.2-15.2) % Plt Count (140-440) K/mm3 Lymph % (Auto) (13.4-35.0) % [place] % (Auto) (0.0-7.3) % Eos % (Auto) (0.0-4.3) % Baso % (Auto) (0.0-1.8) % Lymph # (1.2-5.4) K/mm3 [place] # (0.0-0.8) K/mm3 Eos # (0.0-0.4) K/mm3 Baso # (0.0-0.1) K/mm3 Seg Neutrophils % (40.0-70.0) % Seg Neutrophils # (1.8-7.7) K/mm3 Sodium (137-145) mmol/L Potassium (3.6-5.0) mmol/L Chloride (98-107) mmol/L Carbon Dioxide (22-30) mmol/L Anion Gap mmol/L BUN (7-17) mg/dL Creatinine (0.7-1.2) mg/dL Estimated GFR ml/min BUN/Creatinine Ratio % Glucose (65-100) mg/dL Calcium (8.4-10.2) mg/dL Total Bilirubin (0.1-1.2) mg/dL AST (5-40) units/L ALT (7-56) units/L Alkaline Phosphatase (35-129) units/L Total Protein (6.3-8.2) g/dL Albumin (3.9-5) g/dL Albumin/Globulin Ratio % TSH (0.270-4.200) mlU/mL HCG, Quant < 2 (0-4) mIU/mL - Medical Decision Making Patient is a 29-year-old female presents emergency room with complaints of noticing a small amount of hair falling out and losing eyebrow hair and eyelashes that began 2 weeks ago. Patient states that she was concerned she was having thyroid issues but has no history of thyroid issues. She states that she also has an abscess of the tailbone that began a week ago. She states that she has chronically had this abscess present since she was 13 years old. She denies any fever, drainage, chills, any other symptoms. She states that she last had this approximately 4 months ago and it opened and drained on its own. She states that she has not had an I&D in several years due to it happening so frequently she no longer allows anyone to perform an I&D. She denies any other past medical history or allergies medications. she states that she did not follow-up with a general surgeon she was referred to last time. vitals are normal. labs are stable. TSH is normal. hcg quant is negative. on exam: 2 cm area of induration and erythema to just superior to the gluteal cleft, no fluctuance, no opening, no necrosis, infant caregiver: NIKA cortez. appears to be cellulitis at this point no fluctuant abscess no need for I&D at this time. Given prescription for doxycycline. advised pt please take medication as prescribed. May take Tylenol or ibuprofen for any discomfort. Please use warm compresses 3 times a day. Follow up with a primary care doctor in the next 2-3 days for further evaluation and management. Please follow-up with a general surgeon regarding your chronic condition. Return to the emergency room for any new or worsening symptoms. Critical care attestation.: If time is entered above; I have spent that time in minutes in the direct care of this critically ill patient, excluding procedure time. ED Disposition Clinical Impression: Hair loss Cellulitis Qualifiers: Site of cellulitis: buttock Qualified Code(s): L03.317 - Cellulitis of buttock Disposition: - TO HOME OR SELFCARE Is pt being admited?: No Does the pt Need Aspirin: No Condition: Stable Instructions: Cellulitis (ED) Additional Instructions: please take medication as prescribed. May take Tylenol or ibuprofen for any discomfort. Please use warm compresses 3 times a day. Follow up with a primary care doctor in the next 2-3 days for further evaluation and management. Please follow-up with a general surgeon regarding your chronic condition. Return to the emergency room for any new or worsening symptoms. Prescriptions: Doxycycline Hyclate [Doxycycline Hyclate TAB] 100 mg PO BID 7 Days #14 tablet Referrals: JOSE MOSER MD [Staff Physician] - 2-3 Days [facility] [Outside] - 2-3 Days [facility] [Outside] - 2-3 Days URBANO CASTILLO DO [Staff Physician] - 2-3 Days Forms: Work/School Release Form(ED) Time of Disposition: 17:31 Print Language: AMHARIC
[2019-05-19 18:14] VITALS: BP 131/90
== END 2019-05-19 18:13 | disposition home or self-care (01) ==
LOC: ED 12:10
DX: L03.312 Cellulitis of back [any part except buttock and flank] (principal); L65.9 Nonscarring hair loss, unspecified; Z79.899 Other long term (current) drug therapy
CPT/HCPCS: 36415; 80053; 84443; 84702; 85025

== ENCOUNTER 2019-07-27 19:30 | Emergency (ER) | payer SELFPAY ==
[2019-07-27 20:15] VITALS: BP 134/72
--- NOTE | 2019-07-27 20:35 | Emergency Department Report ---
Blank Doc - Documentation Documentation: has a pilonidal cyst and needs a work note with recommended treatment.
--- NOTE | 2019-07-27 22:02 | Emergency Department Report ---
ED General Adult HPI - General Chief complaint: Wound/Laceration Stated complaint: CYST Time Seen by Provider: 07/27/19 20:33 Source: patient Mode of arrival: Ambulatory Limitations: No Limitations - History of Present Illness Initial comments: Patient is a 29-year-old -Welsh female with a history of chronic recurrent pilonidal abscess who presents to the ED with acute exacerbation of painful swollen erythematous maculopapular nonfluctuant rash on pilonidal area for the last 3 days. Patient states that the last time she had similar symptom or on the same spot was 2 months ago and that it drained on itself and was taking antibiotics. Patient denies fever, chills, nausea, vomiting, traumatic injury, headache, chest pain or shortness of breath, numbness and tingling or weakness of lower extremities bilaterally, urinary or bowel incontinence or saddle paresthesia. MD Complaint: Abscess of Pilonidal area -: Sudden, days(s) (3) Location: buttocks Radiation: non-radiation Severity scale (0 -10): 5 Quality: aching, sharp Consistency: constant Improves with: none Worsens with: none Associated Symptoms: denies other symptoms, rash (Erythematous maculopapular painful swollen rash on the tailbone area). denies: confusion, chest pain, cough, diaphoresis, fever/chills, headaches, loss of appetite, malaise, nausea/vomiting, seizure, shortness of breath, syncope Treatments Prior to Arrival: none - Related Data Previous Rx's Medication Instructions Recorded Last Taken Type Ondansetron [Zofran Odt] 4 mg PO Q6HR PRN #15 tab.rapdis 09/25/18 Unknown Rx Amoxicillin/Potassium Clav 1 each PO Q12H #20 tablet 09/26/18 Unknown Rx [Augmentin 875-125 Tablet] Benzonatate [Tessalon Perles] 100 mg PO Q8HR #24 capsule 09/26/18 Unknown Rx methylPREDNISolone [Medrol] 4 mg PO DAILY #21 tab.ds.pk 09/26/18 Unknown Rx Hyoscyamine Subl [Levsin Sl 0.125 0.125 mg SL Q4HR PRN #20 tablet 10/23/18 Unknown Rx TAB] Ketorolac [Toradol] 10 mg PO Q6H PRN #14 tablet 11/21/18 Unknown Rx methOCARBAMOL [Robaxin TAB] 750 mg PO Q8H PRN #20 tablet 11/21/18 Unknown Rx Doxycycline Hyclate [Doxycycline 100 mg PO BID 7 Days #14 tablet 05/19/19 Unknown Rx Hyclate TAB] Clindamycin [Clindamycin CAP] 300 mg PO Q6H 10 Days #80 capsule 07/27/19 Unknown Rx Ibuprofen [Motrin 600 MG tab] 600 mg PO Q8H PRN #30 tablet 07/27/19 Unknown Rx Sulfamethoxazole/Trimethoprim 1 each PO Q12H #20 tablet 07/27/19 Unknown Rx [Bactrim DS TAB] Allergies Allergy/AdvReac Type Severity Reaction Status Date / Time No Known Allergies Allergy Verified 01/30/19 15:58 ED Review of Systems ROS: Stated complaint: CYST Other details as noted in HPI Constitutional: denies: chills, fever Eyes: denies: eye pain, eye discharge, vision change ENT: denies: ear pain, throat pain Respiratory: denies: cough, shortness of breath, wheezing Cardiovascular: denies: chest pain, palpitations Endocrine: no symptoms reported Gastrointestinal: denies: abdominal pain, nausea, diarrhea Genitourinary: denies: urgency, dysuria, discharge Musculoskeletal: denies: back pain, joint swelling, arthralgia Skin: rash (Erythematous swollen maculopapular painful rash on pilonidal area), other (Swollen erythematous maculopapular rash on pilonidal area). denies: lesions Neurological: denies: headache, weakness, paresthesias Psychiatric: denies: anxiety, depression Hematological/Lymphatic: denies: easy bleeding, easy bruising ED Past Medical Hx - Past Medical History Previous Medical History?: Yes Additional medical history: Pilonidal abscess since age 13 - Surgical History Past Surgical History?: No - Social History Smoking Status: Never Smoker - Medications Home Medications: Home Medications Medication Instructions Recorded Confirmed Last Taken Type Ondansetron [Zofran Odt] 4 mg PO Q6HR PRN #15 tab.rapdis 09/25/18 Unknown Rx Amoxicillin/Potassium Clav 1 each PO Q12H #20 tablet 09/26/18 Unknown Rx [Augmentin 875-125 Tablet] Benzonatate [Tessalon Perles] 100 mg PO Q8HR #24 capsule 09/26/18 Unknown Rx methylPREDNISolone [Medrol] 4 mg PO DAILY #21 tab.ds.pk 09/26/18 Unknown Rx Hyoscyamine Subl [Levsin Sl 0.125 0.125 mg SL Q4HR PRN #20 tablet 10/23/18 Unknown Rx TAB] Ketorolac [Toradol] 10 mg PO Q6H PRN #14 tablet 11/21/18 Unknown Rx methOCARBAMOL [Robaxin TAB] 750 mg PO Q8H PRN #20 tablet 11/21/18 Unknown Rx Doxycycline Hyclate [Doxycycline 100 mg PO BID 7 Days #14 tablet 05/19/19 Unknown Rx Hyclate TAB] Clindamycin [Clindamycin CAP] 300 mg PO Q6H 10 Days #80 capsule 07/27/19 Unknown Rx Ibuprofen [Motrin 600 MG tab] 600 mg PO Q8H PRN #30 tablet 07/27/19 Unknown Rx Sulfamethoxazole/Trimethoprim 1 each PO Q12H #20 tablet 07/27/19 Unknown Rx [Bactrim DS TAB] ED Physical Exam - General Limitations: No Limitations General appearance: alert, in no apparent distress - Head Head exam: Present: atraumatic, normocephalic, normal inspection - Eye Eye exam: Present: normal appearance, PERRL, EOMI - ENT ENT exam: Present: normal exam, normal orophraynx, mucous membranes moist, TM's normal bilaterally, normal external ear exam - Neck Neck exam: Present: normal inspection, full ROM - Respiratory Respiratory exam: Present: normal lung sounds bilaterally. Absent: respiratory distress, wheezes, rales, stridor, chest wall tenderness, accessory muscle use, decreased breath sounds - Cardiovascular Cardiovascular Exam: Present: regular rate, normal rhythm, normal heart sounds. Absent: systolic murmur, diastolic murmur, rubs, gallop - GI/Abdominal GI/Abdominal exam: Present: soft, normal bowel sounds. Absent: tenderness, guarding, rebound, hyperactive bowel sounds, hypoactive bowel sounds - Extremities Exam Extremities exam: Present: normal inspection, full ROM, normal capillary refill. Absent: joint swelling, calf tenderness - Back Exam Back exam: Present: normal inspection, full ROM. Absent: tenderness, muscle spasm, paraspinal tenderness - Neurological Exam Neurological exam: Present: alert, oriented X3, CN II-XII intact, normal gait, reflexes normal - Psychiatric Psychiatric exam: Present: normal affect, normal mood - Skin Skin exam: Present: warm, dry, intact, normal color, rash (Erythematous maculopapular fluctuant rash on pilonidal area), erythema, other (Swelling, severely tender erythematous fluctuant maculopapular rash on pilonidal area) ED Course Vital Signs 07/27/19 07/27/19 20:07 20:20 Temperature 98.2 F 98.2 F Pulse Rate 63 72 Respiratory 18 18 Rate Blood Pressure 134/72 134/72 O2 Sat by Pulse 100 100 Oximetry ED Medical Decision Making - Medical Decision Making This is a 29-year-old -Welsh female with a history of chronic recurrent pilonidal cyst abscesses who presented to the ED with acute exacerba tion of painful swollen erythematous maculopapular fluctuant pilonidal rash for the last 3 days worse in the last 12 hours. In the ED, patient is alert and oriented x3 and is not in distress with normal vital signs. I offered to have him I&D procedure performed in the ED since the rash was fluctuant, severely tender and swollen but the patient declined any procedures, stating that she prefers that the abscess drains on its own. Patient was therefore discharged home on antibiotics and pain medications and advised to follow-up with her own primary care physician or consider following up with a general surgeon on-call Dr. Castillo of possible I&D procedure. Patient was advised to return to the ED immediately if symptoms get worse. - Differential Diagnosis Pilonidal abscess; Cellulitis; Folliculitis Critical care attestation.: If time is entered above; I have spent that time in minutes in the direct care of this critically ill patient, excluding procedure time. ED Disposition Clinical Impression: Pilonidal cyst with abscess, Cellulitis and abscess of buttock Disposition: DC-01 TO HOME OR SELFCARE Is pt being admited?: No Does the pt Need Aspirin: No Condition: Stable Instructions: Cellulitis (ED), Abscess (ED) Additional Instructions: Take medications with food, drink plenty of fluids and follow up with Primary Care Physician in 7-10 days. Consider follow up with the General Surgeon, Dr. Castillo, in 2-3 days for reevaluation for a possible I&D procedure. Return to the ED immediately if symptoms get worse. Prescriptions: Sulfamethoxazole/Trimethoprim [Bactrim DS TAB] 1 each PO Q12H #20 tablet Clindamycin [Clindamycin CAP] 300 mg PO Q6H 10 Days #80 capsule Ibuprofen [Motrin 600 MG tab] 600 mg PO Q8H PRN #30 tablet PRN Reason: Pain Referrals: URBANO CASTILLO DO [Staff Physician] - 3-5 Days Forms: Work/School Release Form(ED) Time of Disposition: 21:57 Print Language: URDU
== END 2019-07-27 22:15 | disposition home or self-care (01) ==
LOC: ED 19:30
DX: L05.01 Pilonidal cyst with abscess (principal); L03.317 Cellulitis of buttock; Z79.1 Long term (current) use of non-steroidal anti-inflammatories (NSAID); Z79.2 Long term (current) use of antibiotics; Z79.899 Other long term (current) drug therapy
CPT/HCPCS: 99282